=== PATIENT | male | born 1980 | race Two or more races ===

== ENCOUNTER 2019-04-09 19:13 | Inpatient (IN) | payer MEDICAID ==
[~2019-04-09] VITALS: Ht 172.7 cm; Wt 71.7 kg
[2019-04-09] MEDS ORDERED: BIKTARVY 50-201 EACH PO (19:22)
--- NOTE | 2019-04-09 19:36 | Emergency Room Report ---
History of Present Illness General Chief Complaint: Skin Rash/Abscess Source: Patient Present Illness HPI Disclaimer: Please note that this report is being documented using [employer] technology. This can lead to erroneous entry secondary to incorrect interpretation by the dictating instrument. HPI: 38-year-old male with history of HIV on retroviral therapy presents for evaluation of swelling of the right knee. Symptoms began 7 days ago. He states he noted a "pimple" develop over his right knee that he tried to pop but could not. Noticed a growing mass and spreading redness circumferentially around the knee as well as distal swelling. Painful ambulation. Noted purulent drainage coming from the wound today. Does not recall any skin breakdown, bites, scratch. He does not inject any medications or illicit drugs. Denies fevers, chills, vomiting, diarrhea, rash in other parts of his body. He believes he had abscesses in the past but many years ago and cannot remember what organisms grew from them. No hardware in that knee or previous instrumentation in that knee. PMH: HIV PSH: Denies Allergies: Denies Social Hx: Denies drug or alcohol abuse Allergies: Coded Allergies: No Known Allergies (Unverified , 04/09/19) Nursing Documentation-PMH Past Medical History: No History, Except For Review of Systems All Other Systems: negative except mentioned in HPI Physical Exam Vital Signs Date Time Temp Pulse Resp B/P (MAP) Pulse Ox O2 Delivery O2 Flow Rate FiO2 04/09/19 19:19 98.4 96 18 122/73 (89) 100 Room Air General: Awake and alert, no acute distress, afebrile, well-appearing HEENT: NC/AT. EOMI. Resp: Normal work of breathing Skin: There is a 4 x 4 centimeter raised erythematous pustule with multiple points of purulent drainage. No bleeding. Surrounding erythema around the right knee with 3+ edema distally in the lower extremity. MSK: Normal tone and bulk. Moving all extremities. No obvious deformity. Calves are asymmetric but nontender. Right greater than left Neuro: Awake and alert. Mentating appropriately Medical Decision Making Diagnostic Impression: Primary Impression: Cellulitis Additional Impressions: Abscess Effusion of knee ER Course 38-year-old male with history of HIV pliant with retroviral therapy presents for evaluation of purulent drainage from a wound over his right knee. Differential includes was not limited to a cellulitis, abscess, septic joint, DVT. Will obtain an ultrasound to assess both the abscess and for DVT, send labs with inflammatory markers and sent a wound culture of the expressed purulent material. Laboratory Tests Test 04/09/19 19:30 White Blood Count 5.9 K/UL (4.8-10.8) Red Blood Count 4.69 M/UL (4.70-6.10) L Hemoglobin 14.0 G/DL (14.2-18.0) L Hematocrit 40.1 % (42.0-52.0) L Mean Corpuscular Volume 85 FL (80-99) Mean Corpuscular Hemoglobin 29.8 PG (27.0-31.0) Mean Corpuscular Hemoglobin Concent 34.9 G/DL (32.0-36.0) Red Cell Distribution Width 10.4 % (11.6-14.8) L Platelet Count 238 K/UL (150-450) Mean Platelet Volume 5.4 FL (6.5-10.1) L Neutrophils (%) (Auto) 69.6 % (45.0-75.0) Lymphocytes (%) (Auto) 21.1 % (20.0-45.0) Monocytes (%) (Auto) 7.0 % (1.0-10.0) Eosinophils (%) (Auto) 1.5 % (0.0-3.0) Basophils (%) (Auto) 0.8 % (0.0-2.0) Erythrocyte Sedimentation Rate 92 MM/HR (0-15) H Sodium Level 141 MMOL/L (136-145) Potassium Level 3.6 MMOL/L (3.5-5.1) Chloride Level 104 MMOL/L (98-107) Carbon Dioxide Level 28 MMOL/L (21-32) Anion Gap 9 mmol/L (5-15) Blood Urea Nitrogen 13 mg/dL (7-18) Creatinine 1.4 MG/DL (0.55-1.30) H Estimate Glomerular Filtration Rate 56.1 mL/min (>60) Glucose Level 104 MG/DL (74-106) Calcium Level 8.4 MG/DL (8.5-10.1) L Total Bilirubin 0.2 MG/DL (0.2-1.0) Aspartate Amino Transferase (AST) 20 U/L (15-37) Alanine Aminotransferase (ALT) 26 U/L (12-78) Alkaline Phosphatase 67 U/L (46-116) C-Reactive Protein, Quantitative 11.9 mg/dL (0.00-0.90) H Total Protein 8.3 G/DL (6.4-8.2) H Albumin 3.1 G/DL (3.4-5.0) L Globulin 5.2 g/dL Albumin/Globulin Ratio 0.6 (1.0-2.7) L Reevaluation Time: 20:21 Last Vital Signs Date Time Temp Pulse Resp B/P (MAP) Pulse Ox O2 Delivery O2 Flow Rate FiO2 04/09/19 19:19 98.4 96 18 122/73 (89) 100 Room Air Reevaluation Impression Ultrasound does not show a DVT in the right lower extremity but does find significant effusion around the right knee. Labs show white count of 5.9 with no shift. Electrolytes within normal limits. Renal function slightly abnormal with a creatinine of 1.4. Creat CRP elevated at 11.9. ESR is pending. Patient will require admission for IV antibiotics. Vancomycin started. Discussed the patient with Dr. Nazario who agrees with this treatment plan. Would be admitted to the medicine service for further treatment. Disposition: ADMITTED INPATIENT Condition: Serious Referrals: NOT CHOSEN IPA/,REFERRING (PCP) Phi Mcintyre MD Apr 09, 2019 19:36
[2019-04-09 19:43] VITALS: BP 122/73
[2019-04-09 19:50] LABS: BASOPHILS % (AUTO) 0.8 % (0.0-2.0); EOSINOPHILS % (AUTO) 1.5 % (0.0-3.0); HEMATOCRIT 40.1 % (42.0-52.0); LYMPHOCYTES % (AUTO) 21.1 % (20.0-45.0); MEAN CORPUSCULAR VOLUME 85 FL (80-99); NEUTROPHILS % (AUTO) 69.6 % (45.0-75.0); PLATELET COUNT 238 K/UL (150-450); RED BLOOD COUNT 4.69 M/UL (4.70-6.10); RED CELL DISTRIBUTION WIDTH 10.4 % (11.6-14.8); WHITE BLOOD COUNT 5.9 K/UL (4.8-10.8)
[2019-04-09 20:02] LABS: ANION GAP 9 mmol/L (5-15); BLOOD UREA NITROGEN 13 mg/dL (7-18); CALCIUM 8.4 MG/DL (8.5-10.1); CARBON DIOXIDE 28 MMOL/L (21-32); CHLORIDE 104 MMOL/L (98-107); CREATININE 1.4 MG/DL (0.55-1.30); POTASSIUM 3.6 MMOL/L (3.5-5.1); SODIUM 141 MMOL/L (136-145)
[2019-04-09 20:06] LABS: ALANINE AMINOTRANSFERASE 26 U/L (12-78); ALBUMIN 3.1 G/DL (3.4-5.0); ALBUMIN/GLOBULIN RATIO 0.6 (1.0-2.7); ALKALINE PHOSPHATASE 67 U/L (46-116); ASPARTATE AMINO TRANSFERASE 20 U/L (15-37); BILIRUBIN,TOTAL 0.2 MG/DL (0.2-1.0)
[2019-04-09] MEDS ORDERED: Vancomycin 1.5 GM in NS 275 ML IVPB ONE (20:30)
[2019-04-09 21:22] VITALS: BP 124/86
[2019-04-09] MEDS ORDERED: Morphine Sulfate 4mg/ml Inj (IV USE ONLY) IVP PRN (21:30)
--- NOTE | 2019-04-09 21:42 | Diagnostic Imaging Report ---
History: DVT Exam: US VENOUS RIGHT LOWER EXTREMITY Comparison: FINDINGS/IMPRESSION: No evidence of DVT within the right lower extremity. Appearance of fluid is seen at the area of concern correlate for possibility of joint effusion versus soft tissue collection. Note of soft tissue edema seen.
[2019-04-10] VITALS: BP 134/82
[2019-04-10] MEDS: Piperacillin/Tazobactam 3.375 GM in NS 110 ML IVPB SCH ×4 (01:22→23:22)
[2019-04-10 04:00] VITALS: BP 123/65
[2019-04-10 07:11] LABS: BASOPHILS % (AUTO) 0.7 % (0.0-2.0); EOSINOPHILS % (AUTO) 3.4 % (0.0-3.0); HEMATOCRIT 38.9 % (42.0-52.0); HEMOGLOBIN 12.8 G/DL (14.2-18.0); LYMPHOCYTES % (AUTO) 29.5 % (20.0-45.0); MEAN CORPUSCULAR VOLUME 89 FL (80-99); MONOCYTES % (AUTO) 10.3 % (1.0-10.0); NEUTROPHILS % (AUTO) 56.2 % (45.0-75.0); PLATELET COUNT 235 K/UL (150-450); RED BLOOD COUNT 4.35 M/UL (4.70-6.10); RED CELL DISTRIBUTION WIDTH 11.6 % (11.6-14.8); WHITE BLOOD COUNT 4.3 K/UL (4.8-10.8)
[2019-04-10 07:24] LABS: ANION GAP 6 mmol/L (5-15); BLOOD UREA NITROGEN 12 mg/dL (7-18); CALCIUM 7.8 MG/DL (8.5-10.1); CARBON DIOXIDE 28 MMOL/L (21-32); CHLORIDE 106 MMOL/L (98-107); CREATININE 1.1 MG/DL (0.55-1.30); POTASSIUM 3.5 MMOL/L (3.5-5.1); SODIUM 140 MMOL/L (136-145)
[2019-04-10 08:00] VITALS: BP 125/67
[2019-04-10] MEDS: Heparin 5000 units/ml inj SUBQ SCH ×2 (09:54→21:15)
[2019-04-10] MEDS ORDERED: Omnipaque-300 100ml vial INJ ONE (11:15)
[2019-04-10] MEDS: Vancomycin 1.5gm/NS Premix 275 ML IVPB SCH ×2 (11:31→21:07)
[2019-04-10 12:00] VITALS: BP 125/69
[2019-04-10 16:00] VITALS: BP 146/77
[2019-04-10 20:00] VITALS: BP 123/71
--- NOTE | 2019-04-10 21:15 | History and Physical Report ---
DATE OF ADMISSION: 04/09/2019 REASON FOR ADMISSION: Cellulitis. HISTORY OF PRESENT ILLNESS: This is a 38-year-old male, presents with history of HIV and has swelling of the right knee. The patient noted initially at , which had worsened. The patient notes painful ambulation overall. The patient has had prior history of abscesses. No history of MRSA. PAST MEDICAL HISTORY: HIV. PAST SURGICAL HISTORY: Otherwise negative. ALLERGIES: Negative. SOCIAL HISTORY: Nonsmoker and nondrinker. No IV drug use. PHYSICAL EXAMINATION: GENERAL: Well-developed male without significant distress. VITAL SIGNS: Reviewed. Otherwise stable. HEENT: Negative. NECK: Supple. LUNGS: Clear. CARDIAC: S1, S2. Regular rate and rhythm. ABDOMEN: Soft and nontender. EXTREMITIES: Overall with surrounding erythema around the right knee with 3+ edema distally. LABORATORY DATA: Otherwise reviewed. IMPRESSION: 1. Evidence of knee cellulitis. 2. Mild protein-calorie malnutrition. 3. Mild leukopenia. 4. Human immunodeficiency virus. RECOMMENDATIONS: 1. IV antibiotics. 2. Wound care. 3. ID evaluation. 4. Stabilize and await improvement. 5. Further imaging as needed. 6. Discharge home once cleared and improved. Carlos Nick M.D. DR: SARAH JOB#: [id number] CC:
[2019-04-11] VITALS: BP 125/76
[2019-04-11 04:00] VITALS: BP 112/74
[2019-04-11] MEDS: Piperacillin/Tazobactam 3.375 GM in NS 110 ML IVPB SCH ×3 (05:58→21:08)
[2019-04-11 08:00] VITALS: BP 123/72
[2019-04-11] MEDS: Heparin 5000 units/ml inj SUBQ SCH ×2 (09:53→21:12)
[2019-04-11] MEDS: Vancomycin 1.5gm/NS Premix 275 ML IVPB SCH ×2 (10:46→21:12)
--- NOTE | 2019-04-11 11:42 | General Progress Note ---
Assessment/Plan Assessment/Plan: IMPRESSION: 1. Evidence of knee cellulitis. 2. Mild protein-calorie malnutrition. 3. Mild leukopenia. 4. Human immunodeficiency virus. 5. possible joint effusion PLAN IV antibiotics wound care CT pending dc once cleared cultures noted Subjective Allergies: Coded Allergies: No Known Allergies (Unverified , 04/09/19) Subjective care noted CT ordered Objective Last 24 Hour Vital Signs Date Time Temp Pulse Resp B/P (MAP) Pulse Ox O2 Delivery O2 Flow Rate FiO2 04/11/19 10:02 Room Air 04/11/19 08:00 96.8 70 18 123/72 (89) 98 04/11/19 04:00 97.1 70 17 112/74 (87) 98 04/11/19 00:00 97.7 81 18 125/76 (92) 98 04/10/19 21:00 Room Air 04/10/19 20:00 98.1 82 18 123/71 (88) 99 04/10/19 16:00 96.4 71 18 146/77 (100) 98 04/10/19 12:00 96.4 66 18 125/69 (87) 99 Intake and Output 04/10/19 04/11/19 19:00 07:00 Intake Total 840 ml 485.0 ml Balance 840 ml 485.0 ml Intake Oral 840 ml 100 ml IV Total 385.0 ml # Voids 3 1 Laboratory Tests 04/11/19 09:08: Vancomycin Level Trough 14.4H Height (Feet): 5 Height (Inches): 8.00 Weight (Pounds): 158 Objective WDWN NAD clear breath sounds bilaterally without rhonchi or wheeze [id number] without MRG NABS nontender no HSM no CCE nonfocal noted knee erythema improved Carlos Nick MD Apr 11, 2019 11:41
[2019-04-11 12:00] VITALS: BP 132/75
[2019-04-11 16:00] VITALS: BP 122/77
[2019-04-11 20:00] VITALS: BP 113/72
[2019-04-12] VITALS: BP 122/70
[2019-04-12 04:00] VITALS: BP 118/72
[2019-04-12] MEDS: Piperacillin/Tazobactam 3.375 GM in NS 110 ML IVPB SCH (05:14)
[2019-04-12 08:00] VITALS: BP 102/73
[2019-04-12] MEDS: Heparin 5000 units/ml inj SUBQ SCH (08:26)
--- NOTE | 2019-04-12 08:30 | General Progress Note ---
Assessment/Plan Assessment/Plan: IMPRESSION: 1. Evidence of knee cellulitis. 2. Mild protein-calorie malnutrition. 3. Mild leukopenia. 4. Human immunodeficiency virus. 5. possible joint effusion PLAN IV antibiotics wound care CT pending dc once cleared cultures noted Subjective Allergies: Coded Allergies: No Known Allergies (Unverified , 04/09/19) Subjective care noted CT ordered Objective Last 24 Hour Vital Signs Date Time Temp Pulse Resp B/P (MAP) Pulse Ox O2 Delivery O2 Flow Rate FiO2 04/12/19 04:00 98.1 78 18 118/72 (87) 99 04/12/19 00:00 97.4 74 18 122/70 (87) 98 04/11/19 21:00 Room Air 04/11/19 20:00 97.7 77 18 113/72 (86) 99 04/11/19 16:00 97.9 82 18 122/77 (92) 99 04/11/19 12:00 97.9 85 19 132/75 (94) 100 04/11/19 10:02 Room Air Intake and Output 04/11/19 04/12/19 19:00 07:00 Intake Total 600 ml 470.0 ml Balance 600 ml 470.0 ml Intake Oral 600 ml 360 ml IV Total 110.0 ml # Voids 4 1 Laboratory Tests 04/11/19 09:08: Vancomycin Level Trough 14.4H Height (Feet): 5 Height (Inches): 8.00 Weight (Pounds): 158 Objective WDWN NAD clear breath sounds bilaterally without rhonchi or wheeze [id number] without MRG NABS nontender no HSM no CCE nonfocal noted knee erythema improved Carlos Nick MD Apr 12, 2019 08:30
[2019-04-12] MEDS: Vancomycin 1.5gm/NS Premix 275 ML IVPB SCH (10:01)
--- NOTE | 2019-04-12 10:26 | Infectious Diseases Prog Note ---
Assessment/Plan Assessment/Plan antibiotics : vancomycin iv, zosyn A 1. right knee cellulitis with staph aureus 2. HIV P 1. d/c iv vancomycin, zosyn 2. start and continue po doxycycline 6 more days 3. will follow up cultures 4. CT pending Subjective Constitutional: Denies: fever, chills Respiratory: Denies: shortness of breath, dry cough Gastrointestinal/Abdominal: Denies: nausea, vomiting, diarrhea Musculoskeletal: Denies: pain Allergies: Coded Allergies: No Known Allergies (Unverified , 04/09/19) Objective Vital Signs Last 24 Hour Vital Signs Date Time Temp Pulse Resp B/P (MAP) Pulse Ox O2 Delivery O2 Flow Rate FiO2 04/12/19 08:00 97.4 80 19 102/73 (83) 99 04/12/19 08:00 Room Air 04/12/19 04:00 98.1 78 18 118/72 (87) 99 04/12/19 00:00 97.4 74 18 122/70 (87) 98 04/11/19 21:00 Room Air 04/11/19 20:00 97.7 77 18 113/72 (86) 99 04/11/19 16:00 97.9 82 18 122/77 (92) 99 04/11/19 12:00 97.9 85 19 132/75 (94) 100 Height (Feet): 5 Height (Inches): 8.00 Weight (Pounds): 158 Respiratory/Chest: lungs clear Cardiovascular: normal rate, regular rhythm, no gallop/murmur Abdomen: soft, non tender Extremities: no edema Microbiology Date/Time Source Procedure Growth Status 04/09/19 20:00 Knee Right Gram Stain - Final Resulted 04/09/19 20:00 Wound Culture - Preliminary Staphylococcus Aureus Resulted Current Medications Medications (Trade) Dose Ordered Sig/Mary Route PRN Reason Start Time Stop Time Status Last Admin Dose Admin Acetaminophen (Tylenol) 650 mg Q4H PRN ORAL Mild Pain/Temp > 100.5 04/09/19 23:45 05/09/19 23:44 Al Hydroxide/Mg Hydroxide (Mylanta) 30 ml EVERY 4 HOURS PRN ORAL antacid 04/09/19 23:45 05/09/19 23:44 Heparin Sodium (Porcine) (Heparin 5000 units/ml) 5,000 units EVERY 12 HOURS SUBQ 04/10/19 09:00 1/13/20 08:59 04/11/19 21:12 Non-Formulary Medication (Non-Formulary Med) 1 ea DAILY ORAL 04/10/19 09:00 05/10/19 08:59 UNV Pantoprazole (Protonix) 40 mg ACBREAKFAST ORAL 04/10/19 06:30 05/10/19 06:29 04/12/19 06:06 Piperacillin Sod/ Tazobactam Sod 3.375 gm/Sodium Chloride 110 ml @ 27.5 mls/hr Q8HR IVPB 04/10/19 14:00 04/17/19 13:59 04/12/19 05:14 Vancomycin HCl (Vanco rx to dose) 1 ea DAILY PRN MISC Per rx protocol 04/09/19 23:45 05/09/19 23:44 Vancomycin/Sodium Chloride 275 ml @ 184 mls/hr Q12H IVPB 04/10/19 10:00 04/15/19 09:59 04/12/19 10:01 Shreya Sandhu MD Apr 12, 2019 10:26
[2019-04-12] MEDS ORDERED: Doxycycline Monohydrate 100mg ORAL SCH (10:30)
[2019-04-12 12:00] VITALS: BP 109/77
--- NOTE | 2019-04-12 15:57 | Diagnostic Imaging Report ---
Indication: Right knee pain and cellulitis, possible effusion Technique: IV administration nonionic contrast. Spiral acquisitions obtained through the right knee Multiplanar reconstructions were generated. Total dose length product 210 mGycm. CTDIvol(s) mGy. Radiation dose was minimized using automated exposure control Comparison: none Findings: There is increased attenuation of the subcutaneous fat of the anterior, medial, lateral knee, with slight involvement of the posterior subcutaneous fat as well. No areas of rim-enhancing low-attenuation to suggest abscess are demonstrated. No definite joint effusion. There is degenerative narrowing of the lateral aspect of the patellofemoral joint. This is mild. The medial and lateral joint spaces are preserved. No osseous erosions. No fractures or dislocations are evident. Impression: Edema of the subcutaneous fat about the knee anteriorly, as described. Given stated clinical findings, probably represents cellulitis although other etiologies also possible. No findings to suggest abscess No evidence of joint effusion Minimal patellofemoral degenerative changes The CT scanner at [facility] is accredited by the [employer] and the scans are performed using protocols designed to limit radiation exposure to as low as reasonably achievable to attain images of sufficient resolution adequate for diagnostic evaluation.
[2019-04-12 16:00] VITALS: BP 115/79
--- NOTE | 2019-04-12 16:15 | Consultation ---
DATE OF CONSULTATION: INFECTIOUS DISEASES CONSULTATION CONSULTING PHYSICIAN: Shreya Sandhu M.D. REFERRING PHYSICIAN: Carlos Nick M.D. REASON FOR CONSULTATION: Right knee abscess. HISTORY OF PRESENTING ILLNESS: This is a 38-year-old gentleman with history of HIV with a history of hernia repair, who came in for swelling of the right knee. Apparently started off as a pimple and he tried to pop and then it started becoming increasingly red and now there is drainage. An Infectious Diseases consultation has been obtained for antibiotics. He did not recall any insect bites or scratches and he did not inject any drugs. PAST MEDICAL HISTORY: 1. History of HIV. 2. History of hernia status post repair. SOCIAL HISTORY: He does not smoke. He drinks alcohol socially. He used to use amphetamines, but not currently. No history of intravenous drug use. FAMILY HISTORY: Noncontributory. REVIEW OF SYSTEMS: RESPIRATORY: No fever, chills, cough, shortness of breath, or chest pain. CARDIAC: No chest pain. No palpitation. No dizziness. No syncope. GASTROINTESTINAL: No nausea. No vomiting. No abdominal pain or diarrhea. GENITOURINARY: No dysuria. No hematuria. MUSCULOSKELETAL: He complains of right knee pain. MEDICATIONS: As an inpatient, he is on Zosyn, IV vancomycin, subcutaneous heparin, Protonix, Tylenol, Mylanta. ALLERGIES: No known drug allergies. PHYSICAL EXAMINATION: VITAL SIGNS: Temperature of 97.4, T-max of 99, pulse of 73, respiratory rate 17, blood pressure 125/67, O2 saturation of 99%. HEENT: Pupils are equally reactive to light and accommodation. Mouth appears clean without thrush. NECK: Supple. No adenopathy. No JVD. CARDIOVASCULAR: Regular rate and rhythm. No murmurs. LUNGS: Clear to auscultation bilaterally. No crackles. No wheezes. ABDOMEN: Soft and nontender. No organomegaly. EXTREMITIES: No cyanosis, no clubbing, no edema. Right knee purulent drainage with some erythema noted. LABORATORY AND DIAGNOSTIC DATA: White count 4.3, hemoglobin 12.8, hematocrit 38.9, MCV 89, platelet count of 235,000. Sodium 140, potassium 3.5, chloride 106, bicarb 28, BUN 12, creatinine 1.1, glucose 104, calcium 7.8. Total bilirubin 0.2, AST 20, ALT 26, alkaline phosphatase 367. C-reactive protein 11.9. Total protein 8.3, albumin 3.1. Wound cultures from the right knee is pending. Ultrasound of legs showed appearance of fluids for possibility of joint effusion versus soft tissue collection. Soft tissue edema noted. ASSESSMENT: 1. This is a 38-year-old gentleman with history of HIV, who comes in and was found to have a pimple on the right knee and he tried to burst it and subsequently now, he has purulent drainage and would be concerned regarding right knee abscess. Cultures are pending. 2. We would also like to rule out underlying osteomyelitis. 3. History of HIV. PLAN: 1. Continue IV vancomycin and Zosyn. 2. We will follow up wound cultures and adjust antibiotics accordingly. 3. We will order a CT of the right knee. I would like to thank, Dr. Nick for this consultation. Shreya Sandhu M.D. DR: RANJAN JOB#: [id number] CC: Carlos Nick M.D.; Fax#: [phone] [facility]
--- NOTE | 2019-04-14 19:33 | Discharge Summary ---
Discharge Summary Discharge Summary _ DATE OF ADMISSION: 04/09/2019 DATE OF DISCHARGE: 04/12/2019 DISCHARGED BY: Dr. Nick REASON FOR ADMISSION: 38 years old male with past medical history of HIV, compliant with antiretroviral therapy, presented with right knee swelling. Symptoms started about 7 days ago. Patient had purulent drainage from the wound over his right knee. Shortly after initial evaluation patient admitted for cellulitis of right knee. CONSULTANTS: ID specialist Dr. Sandhu HOSPITAL COURSE: Patient admitted to medical surgical floor. Patient started on empiric antibiotic as per ID specialist recommendation. Venous duplex right lower extremity revealed no evidence of DVT. It revealed fluid collection with concern of possible joint effusion versus soft tissue collection. Soft tissue edema was seen. CT scan of the right knee revealed no findings suggestive of abscess. No evidence of joint effusion. Wound culture revealed MRSA. Antibiotic regimen was optimized based on sensitivity. DVT prophylaxis provided. Pain management was addressed as needed. ID specialist cleared patient for discharge. Upon discharge.IV antibiotic were changed to oral doxycycline to complete the course as outpatient FINAL DIAGNOSES: Right knee cellulitis HIV Mild protein calorie malnutrition Mild leukopenia DISCHARGE MEDICATIONS: Prescription for doxycycline for 6 more days provided. DISCHARGE INSTRUCTIONS: Patient was discharged home. Complete antibiotics as per ID specialist recommendation I have been assigned to dictate discharge summary for this account. I was not involved in the patient's management. Yoselyn Brink NP Apr 14, 2019 19:33
--- NOTE | 2019-04-21 17:48 | Diagnostic Imaging Report ---
APPROVED REPORT CPT Code: 93532 Present Symptoms Comments: Screening <Conclusion> LEFT LEG: Venous imaging reveals a patent deep venous system. There is no evidence of thrombus within the femoral, popliteal or tibial segments. The greater saphenous vein is also within normal limits. Doppler indicates normal spontaneous flow within these segments.
== END 2019-04-12 19:52 | disposition home or self-care (01) | DRG 894 ==
LOC: EMR 19:30 → 4E 21:18 → EDBEDREQ 21:24
DX: L03.115 Cellulitis of right lower limb (principal); L02.415 Cutaneous abscess of right lower limb; B20 Human immunodeficiency virus [HIV] disease; E44.1 Mild protein-calorie malnutrition; D72.819 Decreased white blood cell count, unspecified; B95.61 Methicillin susceptible Staphylococcus aureus infection as the cause of diseases classified elsewhere
CPT/HCPCS: 36415; 80048; 80053; 80202; 85025; 85651; 86140; 87070; 87181; 87205; 93971; 96361; 96365; 96375; 99285; J2405; J7030